=== PATIENT | female | born 1990 | race Asian ===

== ENCOUNTER → 2019-06-23 | Outpatient (CLI) | payer OTHER ==
[2016-08-05 20:40] VITALS: BP 152/104
--- NOTE | 2019-06-23 17:05 | RAD ---
EXAM: Obstetrics sonogram. HISTORY: Vaginal bleeding. TECHNIQUE: Sonographic imaging of the pelvis was performed. COMPARISON: None. FINDINGS: The uterus measures 7.7 x 3.9 x 5.8 cm. There is a single intrauterine gestational sac with pole and yolk sac. The crown-rump length is 5.1 mm, corresponding with a gestational age of 6 weeks and 2 days and due date of 02/14/2020. The gestational sac is normal in configuration and location. There is a small subchronic hematoma measuring 10 x 5 x 7 mm. The heart rate is 119 bpm. There is a small amount of free fluid within the cul-de-sac and right adnexal region. There is a 3.0 cm right ovarian cyst. There is normal blood flow within both ovaries. IMPRESSION: 1. Single intrauterine fetus with an estimated gestational age of 6 weeks and 2 days and heart rate of 119 bpm. 2. Small subchronic hematoma. 3. 3.0 cm right ovarian cyst and small amount of nonspecific pelvic free fluid. Electronically signed by: Hailey Arvizu MD (06/23/2019 5:02 PM) [facility]
== END | disposition home or self-care (01) ==
LOC: US 16:01
DX: O26.851 Spotting complicating pregnancy, first trimester (principal); O46.91 Antepartum hemorrhage, unspecified, first trimester; N83.291 Other ovarian cyst, right side; Z3A.01 Less than 8 weeks gestation of pregnancy
CPT/HCPCS: 76801; 76817

== ENCOUNTER → 2019-09-24 | Outpatient (CLI) | payer OTHER ==
[2016-08-05 20:40] VITALS: BP 152/104
== END | disposition home or self-care (01) ==
LOC: LAB 10:03
PROVIDERS: ATTEND Obstetrics & Gynecology
DX: Z34.92 Encounter for supervision of normal pregnancy, unspecified, second trimester (principal); Z3A.18 18 weeks gestation of pregnancy
CPT/HCPCS: 36415; 81511

== ENCOUNTER → 2019-09-29 | Outpatient (CLI) | payer OTHER ==
[2016-08-05 20:40] VITALS: BP 152/104
--- NOTE | 2019-09-29 16:44 | RAD ---
EXAM: Obstetrics sonogram. HISTORY: anatomy survey. TECHNIQUE: Sonographic imaging of a gravid uterus was performed. COMPARISON: 06/23/2019. FINDINGS: There is a single intrauterine fetus in breech presentation with a normal heart rate of 138 bpm. The cervix is closed and measures 3.6 cm in length. The maternal adnexal regions are unremarkable. There is a grade 0 posterior fundal placenta without evidence of placenta previa. The amniotic fluid index is normal. The stomach, kidneys, bladder, spine, brain, facial profile, extremities and heart are unremarkable. There is a three-vessel umbilical cord with normal insertion. The biparietal diameter is 4.8 cm, corresponding with 20 weeks and 3 days. The head circumference is 17.2 cm, corresponding with 19 weeks and 5 days. The abdominal sequential images 15.6 cm, corresponding with 20 weeks and 5 days. The femoral length is 3.2 cm, corresponding with 20 weeks and 0 days. The estimated gestational age patient combined ultrasound measurements is 20 weeks and 2 days and the estimated due date is 02/14/2020. The estimated weight is 350 g. IMPRESSION: 1. Single intrauterine fetus in breech presentation with normal heart rate and gestational age based on ultrasound measurements of 20 weeks and 2 days. 2. Unremarkable anatomy survey. Electronically signed by: Hailey Arvizu MD (09/29/2019 4:41 PM) [place] [id number]
== END | disposition home or self-care (01) ==
LOC: US 15:48
PROVIDERS: ATTEND Obstetrics & Gynecology
DX: O32.1XX0 Maternal care for breech presentation, not applicable or unspecified (principal); Z3A.20 20 weeks gestation of pregnancy
CPT/HCPCS: 76805